=== PATIENT | female | born 1985 | race Caucasian/White ===

== ENCOUNTER → 2019-05-22 | Outpatient (CLI) | payer BC, SELFPAY ==
[2016-08-25 08:53] VITALS: BMI 32.7
[2019-05-25 00:38] LABS: HPV Reflexed? NOT INDICATED
== END | disposition home or self-care (01) ==
LOC: LABSPEC 05-23 12:01
PROVIDERS: Referring Provider Obstetrics & Gynecology; Visit Provider Obstetrics & Gynecology
DX: Z12.4 Encounter for screening for malignant neoplasm of cervix (principal)
CPT/HCPCS: 88175; G0145

== ENCOUNTER 2021-06-23 15:00 | Outpatient (CLI) | payer BC, SELFPAY ==
[2021-07-02 15:50] LABS: HPV Reflexed? NOT INDICATED
== END 2021-06-23 23:59 | disposition home or self-care (01) ==
LOC: LABSPEC 06-24 08:39
PROVIDERS: Visit Provider Obstetrics & Gynecology
DX: Z12.4 Encounter for screening for malignant neoplasm of cervix (principal)
CPT/HCPCS: 88175; G0145